=== PATIENT | male | born 1955 | race American Indian/Alaskan Native ===

== ENCOUNTER 2018-10-23 13:14 | Emergency (ER) | payer SELFPAY ==
--- NOTE | 2018-10-23 13:36 | Emergency Department Report ---
Blank Doc - Documentation Documentation: 63 y/o 1 year history of lower back pain that radiates to right flank and hip. worsen with palpation and certain positions. Denies urinary symptoms. Plan urine and xray
[2018-10-23 13:37] VITALS: BP 142/89
--- NOTE | 2018-10-23 14:48 | XRay Report ---
LUMBOSACRAL SPINE, 3 VIEWS: History: Back pain Findings: The vertebral bodies, disk spaces and posterior elements are intact. No compression deformity or malalignment. The SI joints are symmetric and unremarkable. Mild degenerative disc narrowing is noted at L4-5. The remaining levels are within normal limits. Impression: Early degenerative disc disease at L4-5. No evidence for acute injury to the lumbar spine.
[2018-10-23] MEDS ORDERED: TORADOL IM ONE (14:53)
[2018-10-23] MEDS ORDERED: DELTASONE PO ONE (14:53)
--- NOTE | 2018-10-23 14:55 | Emergency Department Report ---
HPI - General Chief Complaint: Back Pain/Injury Time Seen by Provider: 10/23/18 13:33 - HPI HPI: This is a 63-year-old male presents to the ED with low back pain that has been bothering him for about a year. Patient states that he does have a medicine not working thinking aspirin today. He denies any trauma or fall injury to the back. Patient states pain is throbbing in nature. He denies chest pain, abdominal pain, dysuria ED Past Medical Hx - Past Medical History Hx Hypertension: Yes - Social History Smoking Status: Never Smoker Substance Use Type: None - Medications Home Medications: Home Medications Medication Instructions Recorded Confirmed Last Taken Type Cyclobenzaprine [Flexeril] 10 mg PO QHS PRN #20 tablet 10/23/18 Unknown Rx Ibuprofen [Motrin 800 MG tab] 800 mg PO Q8HR PRN #30 tablet 10/23/18 Unknown Rx ED Review of Systems ROS: Stated complaint: BACK/SIDE PAIN Other details as noted in HPI Comment: All other systems reviewed and negative Physical Exam - Physical Exam Vital Signs: Vital Signs 10/23/18 13:34 Temperature 98.2 F Pulse Rate 66 Respiratory 18 Rate Blood Pressure 142/89 O2 Sat by Pulse 100 Oximetry Physical Exam: GENERAL: Alert and oriented x3, no apparent distress, Normal Gait, atraumatic. HEAD: Head is normocephalic and a-traumatic. NECK: Supple. Non edematous, No lymphadenopathy or thyromegaly. No C-spine tenderness, full range of motion BACK: Full range of motion, no spinal tenderness, Tenderness to palpation of the trapezius muscles and latissimus dorsi muscles of the back NEUROLOGIC: The patient is cooperative with no focal neurologic deficits. SKIN: Warm and dry, No lesions, No ulceration or induration present. ED Course Vital Signs 10/23/18 13:34 Temperature 98.2 F Pulse Rate 66 Respiratory 18 Rate Blood Pressure 142/89 O2 Sat by Pulse 100 Oximetry ED Medical Decision Making - Radiology Data Radiology results: report reviewed, image reviewed No acute findings, no dislocation or fractures. - Medical Decision Making 63-year-old male presents with lumbar strain. X-ray shows no acute findings Discussed findings with patient Discussed the patient elevated brace when lifting heavy stuff. Discussed follow-up with primary care physician. Critical care attestation.: If time is entered above; I have spent that time in minutes in the direct care of this critically ill patient, excluding procedure time. ED Disposition Clinical Impression: Lumbar strain Disposition: DC-01 TO HOME OR SELFCARE Is pt being admited?: No Does the pt Need Aspirin: No Condition: Stable Instructions: Muscle Strain (ED), Heat Pack Application (ED) Additional Instructions: Make sure to follow up with the primary care physician as discussed. Take all your medications as you've been prescribed. If you have any worsening symptoms or develop new symptoms please return to ED immediately. Referrals: OMAR AARON MD [Primary Care Provider] - 3-5 Days Forms: Work/School Release Form(ED) Time of Disposition: 14:54
== END 2018-10-23 15:23 | disposition home or self-care (01) ==
LOC: ED 13:14
DX: S39.012A Strain of muscle, fascia and tendon of lower back, initial encounter (principal); I10 Essential (primary) hypertension; X58.XXXA Exposure to other specified factors, initial encounter; Y93.89 Activity, other specified; Y92.89 Other specified places as the place of occurrence of the external cause; Y99.8 Other external cause status
CPT/HCPCS: 72100; 96372; 99283; J1885; J7512

== ENCOUNTER 2019-03-10 02:42 | Emergency (ER) | payer OTHER ==
--- NOTE | 2019-03-10 03:35 | Cat Scan Report ---
CT HEAD WITHOUT CONTRAST INDICATION: MAIN: Pain running up the back of the neck and into the head. Started after playing with grandkids. Denies injury.. TECHNIQUE: All CT scans at this location are performed using CT dose reduction for ALARA by means of automated e xposure control. COMPARISON: None available. FINDINGS: HEMORRHAGE: None. EXTRA-AXIAL SPACES: Normal in size and morphology for the patient's age. VENTRICULAR SYSTEM: Normal in size and morphology for the patient's age. BRAIN PARENCHYMA: No acute findings. MIDLINE SHIFT OR HERNIATION: None. ORBITS: Normal as visualized. SOFT TISSUES OF HEAD: Normal. CALVARIUM: Normal. VISUALIZED PARANASAL SINUSES AND MASTOID AIR CELLS: Clear. ADDITIONAL FINDINGS: None. IMPRESSION: 1. No acute intracranial abnormality. Signer Name: Vik Salinas MD Signed: 03/10/2019 3:31 AM Workstation Name: [id number]
[2019-03-10 04:16] LABS: Basophils % (Auto) 0.6 % (0.0-1.8); Eosinophils # (Auto) 0.1 K/mm3 (0.0-0.4); Eosinophils % (Auto) 2.3 % (0.0-4.3); Hematocrit 42.4 % (35.5-45.6); Hemoglobin 14.2 gm/dl (11.8-15.2); Lymphocytes # (Auto) 1.2 K/mm3 (1.2-5.4); Lymphocytes % (Auto) 29.2 % (13.4-35.0); Mean Corpuscular HGB Conc 34 % (32-34); Mean Corpuscular Volume 93 fl (84-94); Monocytes # (Auto) 0.6 K/mm3 (0.0-0.8); Monocytes % (Auto) 15.4 % (0.0-7.3); Platelet Count 213 K/mm3 (140-440); Red Blood Count 4.56 M/mm3 (3.65-5.03); Red Cell Distribution Width 14.6 % (13.2-15.2)
[2019-03-10 04:40] LABS: Alanine Aminotransferase 36 units/L (7-56); Albumin 4.5 g/dL (3.9-5); BUN/Creatinine Ratio 15; Blood Urea Nitrogen 9 mg/dL (9-20); Calcium 9.4 mg/dL (8.4-10.2); Hemolysis Index 9
[2019-03-10] MEDS ORDERED: TORADOL IM ONE (06:38)
[2019-03-10] MEDS ORDERED: NORVASC PO ONE (06:38)
[2019-03-10] MEDS ORDERED: ZOFRAN ODT PO ONE (06:57)
--- NOTE | 2019-03-10 06:57 | Emergency Department Report ---
ED General Adult HPI - General Chief complaint: Neck Pain/Injury Stated complaint: HEAD/NECK PAIN Time Seen by Provider: 03/10/19 06:29 Source: patient Mode of arrival: Ambulatory Limitations: No Limitations - History of Present Illness Initial comments: This is a 63-year-old man who is noncompliant with his blood pressure medication. He has been here before for back pain. However, he states that he has never had this neck and posterior head pain before. He states that he does a lot of lifting at work. He reports the gradual onset of posterior neck pain which radiates over also involves his occiput. Apparently he has some nausea at home but did not vomit. He states that when he coughs he has exacerbation of the pain. He does not really relate it to movement of his neck. His neck is not stiff per se. He is already had a CT of his head which was read by the radiologist as normal. He does not actually describe a feli headache. He den ies any neurological type change. He's had no fever or chills. -: Gradual Location: head, neck Radiation: other (as per HPI) Quality: aching Consistency: intermittent Improves with: none Worsens with: other (coughing) Associated Symptoms: nausea/vomiting (nausea no vomiting) - Related Data Previous Rx's Medication Instructions Recorded Last Taken Type Cyclobenzaprine [Flexeril] 10 mg PO QHS PRN #20 tablet 10/23/18 Unknown Rx Ibuprofen [Motrin 800 MG tab] 800 mg PO Q8HR PRN #30 tablet 10/23/18 Unknown Rx Butalb/Acetaminophen/Caffeine 1 cap PO Q6HR PRN #7 cap 03/10/19 Unknown Rx [Fioricet 50-300-40 mg CAP] amLODIPine [Norvasc] 5 mg PO DAILY #30 tab 03/10/19 Unknown Rx Allergies Allergy/AdvReac Type Severity Reaction Status Date / Time No Known Allergies Allergy Unverified 10/23/18 13:34 ED Review of Systems ROS: Stated complaint: HEAD/NECK PAIN Other details as noted in HPI Constitutional: denies: chills, fever Eyes: denies: eye pain, eye discharge, vision change ENT: denies: ear pain, throat pain Respiratory: denies: cough, shortness of breath, wheezing Cardiovascular: denies: chest pain, palpitations Endocrine: no symptoms reported Gastrointestinal: denies: abdominal pain, nausea, diarrhea Genitourinary: denies: urgency, dysuria Musculoskeletal: as per HPI. denies: back pain, joint swelling, arthralgia Skin: denies: rash, lesions Neurological: denies: weakness, paresthesias Psychiatric: denies: anxiety, depression Hematological/Lymphatic: denies: easy bleeding, easy bruising ED Past Medical Hx - Past Medical History Previous Medical History?: Yes Hx Hypertension: Yes - Surgical History Past Surgical History?: No - Social History Smoking Status: Current Every Day Smoker Substance Use Type: Alcohol, Marijuana - Medications Home Medications: Home Medications Medication Instructions Recorded Confirmed Last Taken Type Cyclobenzaprine [Flexeril] 10 mg PO QHS PRN #20 tablet 10/23/18 Unknown Rx Ibuprofen [Motrin 800 MG tab] 800 mg PO Q8HR PRN #30 tablet 10/23/18 Unknown Rx Butalb/Acetaminophen/Caffeine 1 cap PO Q6HR PRN #7 cap 03/10/19 Unknown Rx [Fioricet 50-300-40 mg CAP] amLODIPine [Norvasc] 5 mg PO DAILY #30 tab 03/10/19 Unknown Rx ED Physical Exam - General Limitations: No Limitations General appearance: alert, in no apparent distress - Head Head exam: Present: atraumatic, normocephalic - Eye Eye exam: Present: normal appearance. Absent: scleral icterus - ENT ENT exam: Present: mucous membranes moist - Neck Neck exam: Present: normal inspection. Absent: tenderness, meningismus - Respiratory Respiratory exam: Present: normal lung sounds bilaterally. Absent: respiratory distress - Cardiovascular Cardiovascular Exam: Present: regular rate, normal rhythm. Absent: systolic murmur, diastolic murmur, rubs, gallop - GI/Abdominal GI/Abdominal exam: Present: soft, normal bowel sounds. Absent: distended, tenderness, guarding, rebound, rigid - Rectal Rectal exam: Present: deferred - Extremities Exam Extremities exam: Present: normal inspection - Back Exam Back exam: Present: normal inspection - Neurological Exam Neurological exam: Present: alert, oriented X3, CN II-XII intact, normal gait. Absent: motor sensory deficit - Psychiatric Psychiatric exam: Present: normal affect, normal mood - Skin Skin exam: Present: warm, dry, intact, normal color. Absent: rash ED Course Vital Signs 03/10/19 03/10/1919 02:46 05:24 06:59 Temperature 98.6 F 98.5 F Pulse Rate 105 H 77 83 Respiratory 20 16 16 Rate Blood Pressure 158/105 158/115 Blood Pressure 166/103 [Left] O2 Sat by Pulse 97 99 Oximetry - Reevaluation(s) Reevaluation #1: Patient has had an intermittent cough for 2 days and these symptoms related to his cough for at least this period of time. He was given Toradol and amlodipine. Blood pressure is improved. His headache and neck pain is essentially resolved. He is requesting discharge. Although one could consider and I have the possibility of a small subarachnoid hemorrhage in this setting, the fact that the CT is negative after this much time leaves a residual possibility of SAH so small that I do not recommend a spinal tap at this juncture. I have however offered the patient a CT angiogram. States that he is ready to leave and does not want this to be done at this point. He states he will return for any recurrent symptoms. The patient never actually complained of headache per se. He is now asymptomatic at the time of his discharge. We have gone over return criteria and he understands. 03/10/19 07:44 ED Medical Decision Making - Lab Data Result diagrams: 03/10/19 03:48 03/10/19 03:48 Laboratory Results - last 24 hr 03/10/19 03/10/19 03:48 03:48 WBC 4.1 L RBC 4.56 Hgb 14.2 Hct 42.4 MCV 93 MCH 31 MCHC 34 RDW 14.6 Plt Count 213 Lymph % (Auto) 29.2 Grady % (Auto) 15.4 H Eos % (Auto) 2.3 Baso % (Auto) 0.6 Lymph # 1.2 Grady # 0.6 Eos # 0.1 Baso # 0.0 Seg Neutrophils % 52.5 Seg Neutrophils # 2.2 Sodium 137 Potassium 4.1 Chloride 99.5 Carbon Dioxide 21 L Anion Gap 21 BUN 9 Creatinine 0.6 L Estimated GFR > 60 BUN/Creatinine Ratio 15 Glucose 92 Calcium 9.4 Total Bilirubin 0.40 AST 94 H ALT 36 Alkaline Phosphatase 117 Total Protein 8.3 H Albumin 4.5 Albumin/Globulin Ratio 1.2 Critical care attestation.: If time is entered above; I have spent that time in minutes in the direct care of this critically ill patient, excluding procedure time. ED Disposition Clinical Impression: Neck pain Hypertension Qualifiers: Hypertension type: unspecified Qualified Code(s): I10 - Essential (primary) hypertension Disposition: TO HOME OR SELFCARE Is pt being admited?: No Does the pt Need Aspirin: No Condition: Stable Instructions: Hypertension (ED) Additional Instructions: Return to the emergency department for further diagnostic evaluation should you have a headache or any significant worsening of your neck pain. Rx as directed. Primary care follow-up. Prescriptions: Butalb/Acetaminophen/Caffeine [Fioricet 50-300-40 mg CAP] 1 cap PO Q6HR PRN #7 cap PRN Reason: Pain, Moderate (4-6) amLODIPine [Norvasc] 5 mg PO DAILY #30 tab Referrals: OMAR AARON MD [Primary Care Provider] - 24 Hours Time of Disposition: 07:42
[2019-03-10] MEDS ORDERED: ZOFRAN ODT ONE (07:00)
[2019-03-10 07:57] VITALS: BP 139/97
== END 2019-03-10 07:57 | disposition home or self-care (01) ==
LOC: ED 02:42
DX: M54.2 Cervicalgia (principal); R51 Headache; I10 Essential (primary) hypertension; F17.200 Nicotine dependence, unspecified, uncomplicated; F12.10 Cannabis abuse, uncomplicated
CPT/HCPCS: 36415; 70450; 80053; 85025; J1885; 96372; Q0162

== ENCOUNTER 2019-11-12 06:41 | Emergency (ER) | payer SELFPAY ==
[2019-11-12 07:31] VITALS: BP 156/101
--- NOTE | 2019-11-12 08:51 | Emergency Department Report ---
Chief Complaint: Skin Rash Stated Complaint: RT SHOULDER AND HIP PAIN W/RASH Time Seen by Provider: 11/12/19 08:25 - HPI History of Present Illness: 64-year-old -Maced[place] male presents to the emergency room complaining of pain to his right shoulder right hip and leg. Patient states that he has had a shingles-like rash for 1 month. Patient states he has not been any antiviral medication he has been self treating with alcohol. Patient reports he did not get his shingles vaccination. - Exam Vital Signs: Vital Signs 11/12/19 07:30 Temperature 98.9 F Pulse Rate 111 H Respiratory 16 Rate Blood Pressure 156/101 [Right] O2 Sat by Pulse 98 Oximetry Physical Exam: Patient is alert and oriented x3 no acute distress Skin patient has several areas on the right shoulder right flank of dried patchy skin that may have represented grouped vesicles at one time. There is no blisters or vesicles at this moment. Nonerythematous no edematous. Upper extremities full range of motion nontender to palpate nonerythematous nonedematous Right hip full range of motion patient is amatory without difficulty MSE screening note: Focused history and physical exam performed. Due to findings the following was ordered: 64-year-old -Maced[place] male presents to the emergency room complaining of pain to his right shoulder right hip and leg. Patient states that he has had a shingles-like rash for 1 month. Patient states he has not been any antiviral medication he has been self treating with alcohol. Patient reports he did not get his shingles vaccination. Discussed with Dr. Saldana my concerns do not treat patient for shingles as it is been over the incubation period of. Patient has been dealing with rash for 1 month. Patient can take ibuprofen or Tylenol as needed for neuropathy pain and to follow-up with her primary care provider. ED Disposition for MSE Clinical Impression: Shoulder pain, Hip pain, History of shingles Disposition: MED SCREENING EXAM-LEFT Is pt being admited?: No Does the pt Need Aspirin: No Condition: Stable Additional Instructions: Take Tylenol or ibuprofen as needed for pain management. Follow-up with your primary care provider. Referrals: PRIMARY CARE, [Primary Care Provider] - 3-5 Days
== END 2019-11-12 09:08 | disposition left against medical advice (07) ==
LOC: ED 06:41
DX: M25.511 Pain in right shoulder (principal); M25.551 Pain in right hip
CPT/HCPCS: 99282

== ENCOUNTER 2020-06-30 20:57 | Emergency (ER) | payer SELFPAY ==
[2020-06-30 21:26] VITALS: BP 139/98
--- NOTE | 2020-07-01 01:03 | XRay Report ---
CHEST 2 VIEWS INDICATION / CLINICAL INFORMATION: Shortness of breath starting today. Weakness for one to 2 weeks. COMPARISON: None available. FINDINGS: SUPPORT DEVICES: None. HEART / MEDIASTINUM: The heart size and pulmonary vasculature are normal. LUNGS / PLEURA: No significant pulmonary or pleural abnormality. No pneumothorax. ADDITIONAL FINDINGS: No significant additional findings. IMPRESSION: No acute findings. Signer Name: Jalen Yanez MD Signed: 07/01/2020 12:59 AM Workstation Name: [id number]
[2020-07-01 01:51] LABS: Hematocrit 35.1 % (35.5-45.6); Mean Corpuscular HGB Conc 34 % (32-34); Mean Corpuscular Volume 96 fl (84-94); Platelet Count 127 K/mm3 (140-440); Red Blood Count 3.65 M/mm3 (3.65-5.03); Red Cell Distribution Width 13.9 % (13.2-15.2)
[2020-07-01 02:04] LABS: Alanine Aminotransferase 111 units/L (7-56); Albumin 4.5 g/dL (3.9-5); Blood Urea Nitrogen 4 mg/dL (9-20); Calcium 9.2 mg/dL (8.4-10.2); Hemolysis Index 3
[2020-07-01 02:05] LABS: BUN/Creatinine Ratio 8
[2020-07-01 02:09] LABS: Basophils % (Auto) 1.4 % (0.0-1.8); Eosinophils % (Auto) 1.8 % (0.0-4.3); Lymphocytes % (Auto) 26.7 % (13.4-35.0)
[2020-07-01 02:10] LABS: Eosinophils # (Auto) 0.1 K/mm3 (0.0-0.4); Lymphocytes # (Auto) 0.9 K/mm3 (1.2-5.4); Monocytes # (Auto) 0.6 K/mm3 (0.0-0.8)
--- NOTE | 2020-07-01 03:24 | Emergency Department Report ---
ED General Adult HPI - General Chief complaint: Weakness Stated complaint: DIFFICULTY BREATHING, VOMITING, AND WEAKNESS Time Seen by Provider: 07/01/20 00:07 Source: patient Mode of arrival: Ambulatory Limitations: No Limitations - History of Present Illness Initial comments: 64-year-old -[place] male alcoholic who continues at minimum 6 beers w ith mention of oxygen between on a daily basis starting at 6 AM but no other reported past medical history presents emergency department complaining of 1 to 2-week history of episodes of lower extremity numbness tingling occasional weakness, cough with some bouts of shortness of breath. No lower extremity swelling no orthopnea no hemoptysis no hematemesis no hematochezia, no fever, chills, sweats no chest pain or palpitations. He has been feeling more fatigue as well. -: Gradual Improves with: none Worsens with: none Associated Symptoms: weakness. denies: chest pain, diaphoresis, loss of ap petite, malaise, nausea/vomiting, rash, seizure, syncope - Related Data Previous Rx's Medication Instructions Recorded Last Taken Type Cyclobenzaprine [Flexeril] 10 mg PO QHS PRN #20 tablet 10/23/18 Unknown Rx Ibuprofen [Motrin 800 MG tab] 800 mg PO Q8HR PRN #30 tablet 10/23/18 Unknown Rx Butalb/Acetaminophen/Caffeine 1 cap PO Q6HR PRN #7 cap 03/10/19 Unknown Rx [Fioricet 50-300-40 mg CAP] amLODIPine 5 mg PO DAILY #30 tab 03/10/19 Unknown Rx Allergies Allergy/AdvReac Type Severity Reaction Status Date / Time No Known Allergies Allergy Unverified 10/23/18 13:34 ED Review of Systems ROS: Stated complaint: DIFFICULTY BREATHING, VOMITING, AND WEAKNESS Other details as noted in HPI Comment: All other systems reviewed and negative ED Past Medical Hx - Past Medical History Hx Hypertension: Yes - Social History Smoking Status: Never Smoker Substance Use Type: None - Medications Home Medications: Home Medications Medication Instructions Recorded Confirmed Last Taken Type Cyclobenzaprine [Flexeril] 10 mg PO QHS PRN #20 tablet 10/23/18 Unknown Rx Ibuprofen [Motrin 800 MG tab] 800 mg PO Q8HR PRN #30 tablet 10/23/18 Unknown Rx Butalb/Acetaminophen/Caffeine 1 cap PO Q6HR PRN #7 cap 03/10/19 Unknown Rx [Fioricet 50-300-40 mg CAP] amLODIPine 5 mg PO DAILY #30 tab 03/10/19 Unknown Rx ED Physical Exam - General Limitations: No Limitations General appearance: alert, in no apparent distress - Head Head exam: Present: atraumatic, normocephalic - Eye Eye exam: Present: normal appearance, scleral icterus Pupils: Present: normal accommodation - ENT ENT exam: Present: normal exam, normal orophraynx, mucous membranes moist, TM's normal bilaterally - Neck Neck exam: Present: normal inspection - Respiratory Respiratory exam: Present: normal lung sounds bilaterally. Absent: respiratory distress, rhonchi - Cardiovascular Cardiovascular Exam: Present: regular rate, normal rhythm. Absent: systolic murmur, diastolic murmur, rubs, gallop - GI/Abdominal GI/Abdominal exam: Present: soft, normal bowel sounds. Absent: tenderness, rebound, rigid, mass, bruit, pulsatile mass, hernia - Rectal Rectal exam: Present: deferred - Extremities Exam Extremities exam: Present: normal inspection, normal capillary refill - Back Exam Back exam: Present: normal inspection. Absent: CVA tenderness (R), CVA tenderness (L), paraspinal tenderness - Neurological Exam Neurological exam: Present: alert, oriented X3, CN II-XII intact, normal gait, motor sensory deficit - Psychiatric Psychiatric exam: Present: normal affect, normal mood. Absent: anxious, flat affect, suicidal ideation - Skin Skin exam: Present: warm, dry, intact, normal color. Absent: rash, cyanosis, diaphoretic, petechiae ED Course Vital Signs 06/30/20 21:17 Temperature 97.8 F Pulse Rate 94 H Respiratory 18 Rate Blood Pressure 139/98 O2 Sat by Pulse 97 Oximetry - Consultations Consultation #1: 07/01/20 03:39 Case discussed with the attending Dr. Sanchez plan is to discharge home ED Medical Decision Making - Lab Data Result diagrams: 07/01/20 00:37 07/01/20 00:37 Critical care attestation.: If time is entered above; I have spent that time in minutes in the direct care of this critically ill patient, excluding procedure time. ED Disposition Clinical Impression: Elevated liver enzymes, ETOH abuse, Neuropathy Disposition: DC-01 TO HOME OR SELFCARE Is pt being admited?: No Does the pt Need Aspirin: No Condition: Stable Instructions: Abuse of Alcohol (ED), Cirrhosis (ED), Peripheral Neuropathy (ED) Additional Instructions: Please refrain from alcohol utilization. Please return to the emergency department should you start to experience nausea or vomiting, or abdominal pain or a fever or coughing up blood or having bloody stools. Referrals: [facility] [Provider Group] - 3-5 Days
== END 2020-07-01 04:10 | disposition home or self-care (01) ==
LOC: EDBD → ED 20:57
DX: R94.5 Abnormal results of liver function studies (principal); G62.9 Polyneuropathy, unspecified; I10 Essential (primary) hypertension; F12.10 Cannabis abuse, uncomplicated; Z79.899 Other long term (current) drug therapy
CPT/HCPCS: 36415; 71046; 80053; 83690; 85025

== ENCOUNTER 2021-04-15 14:36 | Emergency (ER) | payer SELFPAY ==
[2021-04-15 20:27] LABS: Basophils % (Auto) 0.3 % (0.0-1.8); Eosinophils # (Auto) 0.1 K/mm3 (0.0-0.4); Eosinophils % (Auto) 1.1 % (0.0-4.3); Hematocrit 41.4 % (35.5-45.6); Hemoglobin 13.8 gm/dl (11.8-15.2); Lymphocytes # (Auto) 2.2 K/mm3 (1.2-5.4); Lymphocytes % (Auto) 28.6 % (13.4-35.0); Mean Corpuscular HGB Conc 33 % (32-34); Mean Corpuscular Volume 84 fl (84-94); Monocytes # (Auto) 0.9 K/mm3 (0.0-0.8); Monocytes % (Auto) 12.3 % (0.0-7.3); Platelet Count 262 K/mm3 (140-440); Red Blood Count 4.92 M/mm3 (3.65-5.03)
--- NOTE | 2021-04-15 20:27 | XRay Report ---
LEFT FOOT 3 VIEW(S) INDICATION / CLINICAL INFORMATION: left lateral foot pain/swelling/redness COMPARISON: None available. FINDINGS: BONES / JOINT(S): No acute fracture or subluxation. No significant arthritis. SOFT TISSUES: No significant abnormality. ADDITIONAL FINDINGS: None. Signer Name: Daryn Brock MD Signed: 04/15/2021 8:23 PM Workstation Name: [id number]
[2021-04-15 20:42] LABS: Red Cell Distribution Width 20.9 % (13.2-15.2)
--- NOTE | 2021-04-15 20:58 | Emergency Department Report ---
ED Extremity Problem HPI - General Chief complaint: Extremity Injury, Lower Stated complaint: LT FOOT PAINS Time Seen by Provider: 04/15/21 19:59 Source: patient Mode of arrival: Wheelchair Limitations: No Limitations - History of Present Illness Initial comments: Patient is a 55-year-old male who presents emergency room complaints of left lateral foot pain and swelling that began 2 days ago. He denies any fall or injury. States he does stand on his feet for approximately 8 hours a day. He states he had previously been scratching in this region. He states he wears tennis shoes to work. He denies any numbness or weakness. He denies any pain or swelling in the rest of the leg. He denies any calf pain. He denies ever having this in the past. No past medical history. No allergies to medications. He denies any daily medications. - Related Data Previous Rx's Medication Instructions Recorded Last Taken Type Cyclobenzaprine [Flexeril] 10 mg PO QHS PRN #20 tablet 10/23/18 Unknown Rx Ibuprofen [Motrin 800 MG tab] 800 mg PO Q8HR PRN #30 tablet 10/23/18 Unknown Rx Butalb/Acetaminophen/Caffeine 1 cap PO Q6HR PRN #7 cap 03/10/19 Unknown Rx [Fioricet 50-300-40 mg CAP] amLODIPine 5 mg PO DAILY #30 tab 03/10/19 Unknown Rx Acetaminophen/Codeine [Tylenol 1 tab PO Q6H PRN #12 tab 04/15/21 Unknown Rx /Codeine # 3 tab] Naproxen [EC-Naprosyn] 500 mg PO BID PRN #20 tablet. 04/15/21 Unknown Rx Sulfamethoxazole/Trimethoprim 1 each PO BID 7 Days #14 tablet 04/15/21 Unknown Rx [Bactrim DS TAB] Allergies Allergy/AdvReac Type Severity Reaction Status Date / Time No Known Allergies Allergy Verified 04/15/21 15:33 ED Review of Systems ROS: Stated complaint: LT FOOT PAINS Other details as noted in HPI Comment: All other systems reviewed and negative ED Past Medical Hx - Past Medical History Hx Hypertension: Yes - Social History Smoking Status: Never Smoker Substance Use Type: None - Medications Home Medications: Home Medications Medication Instructions Recorded Confirmed Last Taken Type Cyclobenzaprine [Flexeril] 10 mg PO QHS PRN #20 tablet 10/23/18 Unknown Rx Ibuprofen [Motrin 800 MG tab] 800 mg PO Q8HR PRN #30 tablet 10/23/18 Unknown Rx Butalb/Acetaminophen/Caffeine 1 cap PO Q6HR PRN #7 cap 03/10/19 Unknown Rx [Fioricet 50-300-40 mg CAP] amLODIPine 5 mg PO DAILY #30 tab 03/10/19 Unknown Rx Acetaminophen/Codeine [Tylenol 1 tab PO Q6H PRN #12 tab 04/15/21 Unknown Rx /Codeine # 3 tab] Naproxen [EC-Naprosyn] 500 mg PO BID PRN #20 tablet. 04/15/21 Unknown Rx Sulfamethoxazole/Trimethoprim 1 each PO BID 7 Days #14 tablet 04/15/21 Unknown Rx [Bactrim DS TAB] ED Physical Exam - General Limitations: No Limitations General appearance: alert, in no apparent distress - Head Head exam: Present: atraumatic, normocephalic - Eye Eye exam: Present: normal appearance - ENT ENT exam: Present: mucous membranes moist - Respiratory Respiratory exam: Absent: respiratory distress, accessory muscle use - Neurological Exam Neurological exam: Present: alert, oriented X3 - Psychiatric Psychiatric exam: Present: normal affect, normal mood - Skin Skin exam: Present: warm, dry, other (mild edema and ttp to the left lateral foot, there is mild erythema and increased warmth, no abrasion or laceration, no ulceration, no signs of fluctuance or abscess, does not appear to involve the joint, he has FROM of the LLE, no calf ttp, no edema of the rest of the LLE, neurovascularly intact ) ED Course Vital Signs 04/15/21 04/15/21 15:34 21:19 Temperature 98.4 F Pulse Rate 80 Respiratory 18 Rate Blood Pressure 184/98 Blood Pressure 168/101 [Left] O2 Sat by Pulse 99 Oximetry ED Medical Decision Making - Lab Data Result diagrams: 04/15/21 20:06 04/15/21 20:06 Lab Results 04/15/21 04/15/21 04/15/21 Range/Units 20:06 20:06 20:06 WBC 7.6 (4.5-11.0) K/mm3 RBC 4.92 (3.65-5.03) M/mm3 Hgb 13.8 (11.8-15.2) gm/dl Hct 41.4 (35.5-45.6) % MCV 84 (84-94) fl MCH 28 (28-32) pg MCHC 33 (32-34) % RDW 20.9 H (13.2-15.2) % Plt Count 262 (140-440) K/mm3 Lymph % (Auto) 28.6 (13.4-35.0) % [place] % (Auto) 12.3 H (0.0-7.3) % Eos % (Auto) 1.1 (0.0-4.3) % Baso % (Auto) 0.3 (0.0-1.8) % Lymph # (Auto) 2.2 (1.2-5.4) K/mm3 [place] # (Auto) 0.9 H (0.0-0.8) K/mm3 Eos # (Auto) 0.1 (0.0-0.4) K/mm3 Baso # (Auto) 0.0 (0.0-0.1) K/mm3 Seg Neutrophils % 57.7 (40.0-70.0) % Seg Neutrophils # 4.4 (1.8-7.7) K/mm3 Sodium 139 (137-145) mmol/L Potassium 4.7 (3.6-5.0) mmol/L Chloride 98.6 (98-107) mmol/L Carbon Dioxide 26 (22-30) mmol/L Anion Gap 19 mmol/L BUN 9 (9-20) mg/dL Creatinine 0.8 (0.8-1.3) mg/dL Estimated GFR > 60 ml/min BUN/Creatinine Ratio 11 % Glucose 83 (75-100) mg/dL Lactic Acid 0.90 (0.7-2.0) mmol/L Uric Acid 4.7 (3.5-7.6) mg/dL Calcium 10.2 (8.4-10.2) mg/dL Total Bilirubin 0.50 (0.1-1.2) mg/dL AST 30 (5-40) units/L ALT 16 (7-56) units/L Alkaline Phosphatase 81 (35-129) units/L C-Reactive Protein 0.20 (0.00-1.30) mg/dL Total Protein 7.8 (6.3-8.2) g/dL Albumin 4.8 (3.9-5) g/dL Albumin/Globulin Ratio 1.6 % Vital Signs 04/15/21 04/15/21 15:34 21:19 Temperature 98.4 F Pulse Rate 80 Respiratory 18 Rate Blood Pressure 184/98 Blood Pressure 168/101 [Left] O2 Sat by Pulse 99 Oximetry - Radiology Data Radiology results: report reviewed Ordering Physician: CAYDEN TREJO Date of Service: 04/15/21 Procedure(s): XR foot 3+V LT Accession Number(s): [id number] cc: CAYDEN TREJO Fluoro Time In Minutes: LEFT FOOT 3 VIEW(S) INDICATION / CLINICAL INFORMATION: left lateral foot pain/swelling/redness COMPARISON: None available. FINDINGS: BONES / JOINT(S): No acute fracture or subluxation. No significant arthritis. SOFT TISSUES: No significant abnormality. ADDITIONAL FINDINGS: None. Signer Name: Daryn Brock MD Signed: 04/15/2021 8:23 PM Workstation Name: [id number] Transcribed By: TL Dictated By: Daryn Brock MD Electronically Authenticated By: Daryn Brock MD Signed Date/Time: 04/15/212022 DD/ 22 TD/TT: - Medical Decision Making Patient is a 55-year-old male who presents emergency room complaints of left lateral foot pain and swelling that began 2 days ago. He denies any fall or injury. States he does stand on his feet for approximately 8 hours a day. He states he had previously been scratching in this region. He states he wears tennis shoes to work. He denies any numbness or weakness. He denies any pain or swelling in the rest of the leg. He denies any calf pain. He denies ever having this in the past. No past medical history. No allergies to medications. He denies any daily medications. Vitals with elevated blood pressure, patient states that he has been told he has hypertension in the past, he advised he was attempting to control it with low-sodium diet, he has never been on blood pressure medication, he is not having any symptoms related to his elevated blood pressure, advised patient to follow-up with primary care doctor, keep a blood pressure log, eat a low-sodium diet, increase water intake, incorporate 30 to 60 minutes of daily exercise, the up-to-date medical literature does not recommend emergently lowering asymptomatic elevated blood pressure. On exam:mild edema and ttp to the left lateral foot, there is mild erythema and increased warmth, no abrasion or laceration, no ulceration, no signs of fluctuance or abscess, does not appear to involve the joint, he has FROM of the LLE, no calf ttp, no edema of the rest of the LLE, neurovascularly intact. XR left foot: BONES / JOINT(S): No acute fracture or subluxation. No significant arthritis. SOFT TISSUES: No significant abnormality. ADDITIONAL FINDINGS: None. Labs are normal. No leukocytosis, no lactic acidosis. Uric acid is normal. Patient's blood glucose is normal. Symptoms appear could likely be related to cellulitis, does not appear to involve a joint, do not suspect septic joint at this time. Patient given prescription for medication. See importance of primary care and orthopedic follow-up. Advised to have area reexamined in the next 2 to 3 days. Discussed very strict return precautions with patient. Advised patient Please take medication as prescribed. Follow-up with a orthopedic doctor. Follow-up with a primary care doctor. Return to emergency room for any new or worsening symptoms. Critical care attestation.: If time is entered above; I have spent that time in minutes in the direct care of this critically ill patient, excluding procedure time. ED Disposition Clinical Impression: Foot swelling Foot pain Qualifiers: Laterality: left Qualified Code(s): M79.672 - Pain in left foot Cellulitis Qualifiers: Site of cellulitis: extremity Site of cellulitis of extremity: lower extremity Laterality: left Qualified Code(s): L03.116 - Cellulitis of left lower limb Disposition: 01 HOME / SELF CARE / HOMELESS Is pt being admited?: No Does the pt Need Aspirin: No Condition: Stable Instructions: Cellulitis, Adult Additional Instructions: Please take medication as prescribed. Follow-up with a orthopedic doctor. Follow-up with a primary care doctor. Return to emergency room for any new or worsening symptoms. Prescriptions: Sulfamethoxazole/Trimethoprim [Bactrim DS TAB] 1 each PO BID 7 Days #14 tablet Naproxen [EC-Naprosyn] 500 mg PO BID PRN #20 tablet.dr COCHRAN Reason: moderate pain Acetaminophen/Codeine [Tylenol /Codeine # 3 tab] 1 tab PO Q6H PRN #12 tab PRN Reason: severe pain Referrals: MIKE IRAHETA MD [Staff Physician] - 3-5 Days [facility] [Provider Group] - 3-5 Days OMA KIM MD [Staff Physician] - 3-5 Days [facility] [Provider Group] - 3-5 Days Forms: Work/School Release Form(ED) Time of Disposition: 21:09 Print Language: CZECH
[2021-04-15 21:02] LABS: Alanine Aminotransferase 16 units/L (7-56); Albumin 4.8 g/dL (3.9-5); BUN/Creatinine Ratio 11; Blood Urea Nitrogen 9 mg/dL (9-20); Calcium 10.2 mg/dL (8.4-10.2); Hemolysis Index 39; Uric Acid 4.7 mg/dL (3.5-7.6)
[2021-04-15 21:20] VITALS: BP 168/101
== END 2021-04-16 01:42 | disposition home or self-care (01) ==
LOC: ED 14:36
DX: L03.116 Cellulitis of left lower limb (principal); M79.89 Other specified soft tissue disorders; M79.672 Pain in left foot; I10 Essential (primary) hypertension; Z79.899 Other long term (current) drug therapy
CPT/HCPCS: 36415; 80053; 82140; 84550; 85025; 86140

== ENCOUNTER 2021-07-05 08:25 | Emergency (ER) | payer SELFPAY ==
[2021-07-05 10:31] VITALS: BP 140/93
--- NOTE | 2021-07-05 10:36 | Emergency Department Report ---
ED Back Pain/Injury HPI - General Chief Complaint: Back Pain/Injury Stated Complaint: LOWER BACK PAIN Time Seen by Provider: 07/05/21 10:14 Source: patient Limitations: No Limitations - History of Present Illness Initial Comments: Patient is a 55-year-old male presents emergency room complaints of lower back pain that radiates down his right leg that exacerbated over the last few days. Patient reports that he does a lot of bending over and lifting at his job. 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 He denies any fall or injury. He states occasionally he gets a tingling in his right leg. He denies any leg swelling, calf pain, fever, nausea, vomiting, diarrhea, urinary symptoms, weakness, bowel or bladder incontinence. He denies any steroid use, history of cancer, IV drug use. PMHx HTN. No allergies to meds. - Related Data Previous Rx's Medication Instructions Recorded Last Taken Type Cyclobenzaprine [Flexeril] 10 mg PO QHS PRN #20 tablet 10/23/18 Unknown Rx Ibuprofen [Motrin 800 MG tab] 800 mg PO Q8HR PRN #30 tablet 10/23/18 Unknown Rx Butalb/Acetaminophen/Caffeine 1 cap PO Q6HR PRN #7 cap 03/10/19 Unknown Rx [Fioricet 50-300-40 mg CAP] amLODIPine 5 mg PO DAILY #30 tab 03/10/19 Unknown Rx Acetaminophen/Codeine [Tylenol 1 tab PO Q6H PRN #12 tab 04/15/21 Unknown Rx /Codeine # 3 tab] Naproxen [EC-Naprosyn] 500 mg PO BID PRN #20 tablet. 04/15/21 Unknown Rx Sulfamethoxazole/Trimethoprim 1 each PO BID 7 Days #14 tablet 04/15/21 Unknown Rx [Bactrim DS TAB] Menthol/Camphor [[place] 1 applicatio TP BID #18 oint...g. 07/05/21 Unknown Rx Ointment] Naproxen 375 mg PO BID PRN #20 tablet 07/05/21 Unknown Rx methOCARBAMOL [Robaxin TAB] 500 mg PO BID PRN #14 tab 07/05/21 Unknown Rx Allergies Allergy/AdvReac Type Severity Reaction Status Date / Time No Known Allergies Allergy Verified 04/15/21 15:33 ED Review of Systems ROS: Stated complaint: LOWER BACK PAIN Other details as noted in HPI Comment: All other systems reviewed and negative ED Past Medical Hx - Past Medical History Hx Hypertension: Yes - Social History Smoking Status: Current Every Day Smoker - Medications Home Medications: Home Medications Medication Instructions Recorded Confirmed Last Taken Type Cyclobenzaprine [Flexeril] 10 mg PO QHS PRN #20 tablet 10/23/18 Unknown Rx Ibuprofen [Motrin 800 MG tab] 800 mg PO Q8HR PRN #30 tablet 10/23/18 Unknown Rx Butalb/Acetaminophen/Caffeine 1 cap PO Q6HR PRN #7 cap 03/10/19 Unknown Rx [Fioricet 50-300-40 mg CAP] amLODIPine 5 mg PO DAILY #30 tab 03/10/19 Unknown Rx Acetaminophen/Codeine [Tylenol 1 tab PO Q6H PRN #12 tab 04/15/21 Unknown Rx /Codeine # 3 tab] Naproxen [EC-Naprosyn] 500 mg PO BID PRN #20 tablet. 04/15/21 Unknown Rx Sulfamethoxazole/Trimethoprim 1 each PO BID 7 Days #14 tablet 04/15/21 Unknown Rx [Bactrim DS TAB] Menthol/Camphor [[place] 1 applicatio TP BID #18 oint...g. 07/05/21 Unknown Rx Ointment] Naproxen 375 mg PO BID PRN #20 tablet 07/05/21 Unknown Rx methOCARBAMOL [Robaxin TAB] 500 mg PO BID PRN #14 tab 07/05/21 Unknown Rx ED Physical Exam - General Limitations: No Limitations General appearance: alert, in no apparent distress - Head Head exam: Present: atraumatic, normocephalic - Eye Eye exam: Present: normal appearance - ENT ENT exam: Present: mucous membranes moist - Neck Neck exam: Present: normal inspection, full ROM. Absent: tenderness, meningismus - Respiratory Respiratory exam: Present: normal lung sounds bilaterally. Absent: respiratory distress, wheezes, rales, rhonchi, stridor, chest wall tenderness, accessory muscle use, decreased breath sounds, prolonged expiratory - Cardiovascular Cardiovascular Exam: Present: regular rate, normal rhythm, normal heart sounds. Absent: systolic murmur, diastolic murmur, rubs, gallop - Extremities Exam Extremities exam: Present: other (FROM of the RLE, no calf ttp, no pedal edema, no skin changes, no bony ttp, neurovascularly intact) - Back Exam Back exam: Present: normal inspection, full ROM, paraspinal tenderness (right si ded lumbar paraspinal ttp, no midline C-spine, T-spine or L-spine ttp, no step offs, no deformities). Absent: vertebral tenderness - Neurological Exam Neurological exam: Present: alert, oriented X3, CN II-XII intact, normal gait. Absent: motor sensory deficit - Psychiatric Psychiatric exam: Present: normal affect, normal mood - Skin Skin exam: Present: warm, dry, intact ED Course Vital Signs 07/05/21 10:20 Temperature 98.1 F Pulse Rate 76 Respiratory 18 Rate Blood Pressure 140/93 O2 Sat by Pulse 99 Oximetry ED Medical Decision Making - Medical Decision Making Patient is a 55-year-old male presents emergency room complaints of lower back pain that radiates down his right leg that exacerbated over the last few days. Patient reports that he does a lot of bending over and lifting at his job. 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 He denies any fall or injury. He states occasionally he gets a tingling in his right leg. He denies any leg s welling, calf pain, fever, nausea, vomiting, diarrhea, urinary symptoms, weakness, bowel or bladder incontinence. He denies any steroid use, history of cancer, IV drug use. PMHx HTN. No allergies to meds. Vitals are stable. On exam:right sided lumbar paraspinal ttp, no midline C-spine, T-spine or L-spine ttp, no step offs, no deformities, no focal neuro deficits, ambulatory without difficulty,FROM of the RLE, no calf ttp, no pedal edema, no skin changes, no bony ttp, neurovascularly intact. Symptoms and examination appear the most likely consistent with sciatica versus lumbar radiculopathy. Patient has no red flag warning signs of back pain, no trauma, no unexplained weight loss, no neuro deficits, no fever, no IV drug use, no steroid use, no history of cancer. Patient given prescription for medications. Advised patient Please use medication as prescribed. May use ice pack, heating pad, rest, and epsom salt bath. Do not use [place] balm while using heat or ice. Follow-up with a primary care doctor for reexamination. Return to emergency room for new or worsening symptoms. Critical care attestation.: If time is entered above; I have spent that time in minutes in the direct care of this critically ill patient, excluding procedure time. ED Disposition Clinical Impression: Low back pain Qualifiers: Chronicity: acute Back pain laterality: right Sciatica presence: with sciatica Sciatica laterality: sciatica of right side Qualified Code(s): M54.41 - Lumbago with sciatica, right side Disposition: HOME / SELF CARE / HOMELESS Is pt being admited?: No Does the pt Need Aspirin: No Condition: Stable Instructions: Sciatica Additional Instructions: Please use medication as prescribed. May use ice pack, heating pad, rest, and epsom salt bath. Do not use [place] balm while using heat or ice. Follow-up with a primary care doctor for reexamination. Return to emergency room for new or worsening symptoms. Prescriptions: Naproxen 375 mg PO BID PRN #20 tablet PRN Reason: pain methOCARBAMOL [Robaxin TAB] 500 mg PO BID PRN #14 tab PRN Reason: muscle spasm/pain Menthol/Camphor [[place] Ointment] 1 applicatio TP BID #18 oint...g. Referrals: MIKE IRAHETA MD [Staff Physician] - 2-3 Days [facility] [Provider Group] - 2-3 Days Time of Disposition: 10:37 Print Language: [place]
== END 2021-07-05 11:00 | disposition home or self-care (01) ==
LOC: ED 08:25
DX: M54.50 Low back pain, unspecified (principal); I10 Essential (primary) hypertension; F17.200 Nicotine dependence, unspecified, uncomplicated
CPT/HCPCS: 99281

== ENCOUNTER 2021-08-24 13:57 | Emergency (ER) | payer SELFPAY ==
--- NOTE | 2021-08-24 14:25 | Emergency Department Report ---
ED Back Pain/Injury HPI - General Chief Complaint: Back Pain/Injury Stated Complaint: back flores Time Seen by Provider: 08/24/21 14:18 Source: patient Limitations: No Limitations - History of Present Illness Initial Comments: Patient is a 56-year-old male presents emergency room with complaints of right- sided back pain that radiates down his right leg that exacerbated over the last month. Patient was seen for similar symptoms in early July but reports that he did not follow-up with anyone. He denies any fall or injury. He denies any fever, nausea, vomiting, diarrhea, urinary symptoms, abdominal pain, chest pain, shortness of breath, numbness, weakness, bowel or bladder incontinence. He denies any steroid use, history of cancer, IV drug use. No past medical histor y. No allergies to medications. - Related Data Previous Rx's Medication Instructions Recorded Last Taken Type Cyclobenzaprine [Flexeril] 10 mg PO QHS PRN #20 tablet 10/23/18 Unknown Rx Ibuprofen [Motrin 800 MG tab] 800 mg PO Q8HR PRN #30 tablet 10/23/18 Unknown Rx Butalb/Acetaminophen/Caffeine 1 cap PO Q6HR PRN #7 cap 03/10/19 Unknown Rx [Fioricet 50-300-40 mg CAP] amLODIPine 5 mg PO DAILY #30 tab 03/10/19 Unknown Rx Acetaminophen/Codeine [Tylenol 1 tab PO Q6H PRN #12 tab 04/15/21 Unknown Rx /Codeine # 3 tab] Naproxen [EC-Naprosyn] 500 mg PO BID PRN #20 tablet. 04/15/21 Unknown Rx Sulfamethoxazole/Trimethoprim 1 each PO BID 7 Days #14 tablet 04/15/21 Unknown Rx [Bactrim DS TAB] Naproxen 375 mg PO BID PRN #20 tablet 07/05/21 Unknown Rx Meloxicam [Mobic] 7.5 mg PO QDAY #30 tablet 08/24/21 Unknown Rx Menthol/Camphor [[place] 1 applicatio TP BID #18 oint...g. 08/24/21 Unknown Rx Ointment] methOCARBAMOL [Robaxin TAB] 500 mg PO BID PRN #20 tab 08/24/21 Unknown Rx Allergies Allergy/AdvReac Type Severity Reaction Status Date / Time No Known Allergies Allergy Verified 04/15/21 15:33 ED Review of Systems ROS: Stated complaint: back flores Other details as noted in HPI Comment: All other systems reviewed and negative ED Past Medical Hx - Past Medical History Hx Hypertension: Yes - Social History Smoking Status: Current Every Day Smoker - Medications Home Medications: Home Medications Medication Instructions Recorded Confirmed Last Taken Type Cyclobenzaprine [Flexeril] 10 mg PO QHS PRN #20 tablet 10/23/18 Unknown Rx Ibuprofen [Motrin 800 MG tab] 800 mg PO Q8HR PRN #30 tablet 10/23/18 Unknown Rx Butalb/Acetaminophen/Caffeine 1 cap PO Q6HR PRN #7 cap 03/10/19 Unknown Rx [Fioricet 50-300-40 mg CAP] amLODIPine 5 mg PO DAILY #30 tab 03/10/19 Unknown Rx Acetaminophen/Codeine [Tylenol 1 tab PO Q6H PRN #12 tab 04/15/21 Unknown Rx /Codeine # 3 tab] Naproxen [EC-Naprosyn] 500 mg PO BID PRN #20 tablet.dr 04/15/21 Unknown Rx Sulfamethoxazole/Trimethoprim 1 each PO BID 7 Days #14 tablet 04/15/21 Unknown Rx [Bactrim DS TAB] Naproxen 375 mg PO BID PRN #20 tablet 07/05/21 Unknown Rx Meloxicam [Mobic] 7.5 mg PO QDAY #30 tablet 08/24/21 Unknown Rx Menthol/Camphor [[place] 1 applicatio TP BID #18 oint...g. 08/24/21 Unknown Rx Ointment] methOCARBAMOL [Robaxin TAB] 500 mg PO BID PRN #20 tab 08/24/21 Unknown Rx ED Physical Exam - General Limitations: No Limitations General appearance: alert, in no apparent distress - Head Head exam: Present: atraumatic, normocephalic - Eye Eye exam: Present: normal appearance - ENT ENT exam: Present: mucous membranes moist - Neck Neck exam: Present: normal inspection, full ROM. Absent: tenderness, meningismus - Respiratory Respiratory exam: Present: normal lung sounds bilaterally. Absent: respiratory distress, wheezes, rales, rhonchi, stridor, chest wall tenderness, accessory muscle use, decreased breath sounds, prolonged expiratory - Cardiovascular Cardiovascular Exam: Present: regular rate, normal rhythm, normal heart sounds. Absent: systolic murmur, diastolic murmur, rubs, gallop - Back Exam Back exam: Present: normal inspection, full ROM, paraspinal tenderness (right sided lumbar paraspinal ttp, no midline c-spine, t-spine, or l-spine ttp, no step offs, no deformities). Absent: vertebral tenderness - Neurological Exam Neurological exam: Present: alert, oriented X3, CN II-XII intact, normal gait. Absent: motor sensory deficit - Psychiatric Psychiatric exam: Present: normal affect, normal mood - Skin Skin exam: Present: warm, dry, intact ED Course Vital Signs 08/24/21 08/24/21 13:59 14:38 Temperature 98.7 F Pulse Rate 98 H 74 Respiratory 16 15 Rate Blood Pressure 153/91 132/82 [Left] O2 Sat by Pulse 97 99 Oximetry ED Medical Decision Making - Lab Data Vital Signs 08/24/21 08/24/21 13:59 14:38 Temperature 98.7 F Pulse Rate 98 H 74 Respiratory 16 15 Rate Blood Pressure 153/91 132/82 [Left] O2 Sat by Pulse 97 99 Oximetry - Medical Decision Making Patient is a 56-year-old male presents emergency room with complaints of right- sided back pain that radiates down his right leg that exacerbated over the last month. Patient was seen for similar symptoms in early July but reports that he did not follow-up with anyone. He denies any fall or injury. He denies any fever, nausea, vomiting, diarrhea, urinary symptoms, abdominal pain, chest pain, shortness of breath, numbness, weakness, bowel or bladder incontinence. He denies any steroid use, history of cancer, IV drug use. No past medical history. No allergies to medications. Vitals are stable. On exam: right sided lumbar paraspinal ttp, no midline c-spine, t-spine, or l-spine ttp, no step offs, no deformities, no focal neuro deficits, ambulatory without difficulty. Symptoms and examination likely consistent with lumbar radiculopathy versus sciatica. Patient has no red flag warning signs of back pain, no trauma, no unexplained weight loss, no neuro deficits, no fever, no IV drug use, no steroid use, no history of cancer, no saddle numbness. Advised pt Please use medication as prescribed as needed. Follow-up with your primary care doctor. F ollow-up with a military personnel specialist. It is very important that you follow-up. Return to emergency room for any new or worsening symptoms. Critical care attestation.: If time is entered above; I have spent that time in minutes in the direct care of this critically ill patient, excluding procedure time. ED Disposition Clinical Impression: Low back pain Qualifiers: Chronicity: acute Back pain laterality: right Sciatica presence: with sciatica Sciatica laterality: sciatica of right side Qualified Code(s): M54.41 - Lumbago with sciatica, right side Disposition: 01 HOME / SELF CARE / HOMELESS Is pt being admited?: No Does the pt Need Aspirin: No Condition: Stable Instructions: Sciatica Additional Instructions: Please use medication as prescribed as needed. Follow-up with your primary care doctor. Follow-up with a military personnel specialist. It is very important that you follow-up. Return to emergency room for any new or worsening symptoms. Prescriptions: Meloxicam [Mobic] 7.5 mg PO QDAY #30 tablet methOCARBAMOL [Robaxin TAB] 500 mg PO BID PRN #20 tab PRN Reason: muscle spasm/pain Menthol/Camphor [[place] Ointment] 1 applicatio TP BID #18 oint...g. Referrals: MIKE IRAHETA MD [Staff Physician] - 3-5 Days [facility] [Provider Group] - 3-5 Days [facility], [LAB[facility]CONTRACT] - 3-5 Days [facility] [Outside] - 3-5 Days FANI JONES II, MD [Staff Physician] - 3-5 Days (military personnel specialist ) Time of Disposition: 14:24 Print Language: [place]ISH
[2021-08-24 14:41] VITALS: BP 132/82
== END 2021-08-24 14:58 | disposition home or self-care (01) ==
LOC: ED 13:57
DX: M54.50 Low back pain, unspecified (principal); F17.200 Nicotine dependence, unspecified, uncomplicated
CPT/HCPCS: 99282

== ENCOUNTER 2022-01-01 23:52 | Emergency (ER) | payer SELFPAY ==
[2022-01-02 10:29] VITALS: BP 132/85
[2022-01-02] MEDS ORDERED: TETANUS,DIPH,PERTUSS(ACELL) VACCINE 0.5 ML SYRINGE IM ONE (10:35)
--- NOTE | 2022-01-02 10:40 | Emergency Department Report ---
ED Lower Extremity HPI - General Chief Complaint: Extremity Injury, Lower Stated Complaint: FOOT INURY Source: patient Mode of arrival: Ambulatory Limitations: No Limitations - History of Present Illness Initial Comments: Patient is a 56-year-old -[place] male with a history of hypertension who presents to the ED with complaint of acute onset right plantar foot pain due to a small puncture wound that he sustained after stepping on an old chandu nail 24 hours ago that appears through his rubber shoes. Patient states that he removed the nail completely but subsequently has been having persistent pain on ambulation. Patient states that he is not up-to-date with his tetanus vaccinations. Patient denies fall, traumatic injury, dizziness, syncope, nausea and vomiting, fever and chills, numbness and tingling or weakness of right foot or headache. MD Complaint: foot injury (Right plantar foot puncture wound, stepped on a chandu nail) -: Sudden, hour(s) (24) Injury: Foot: Right (Puncture wound on right plantar foot with pain) Type of Injury: laceration Place: street/outdoors Severity scale (0 -10): 5 Improves With: nothing Worsens With: weight bearing, movement, palpation Context: stepped on nail Associated Symptoms: snap/pop sensation, ambulatory. denies: swelling, numbness, tingling, unable to bear weight, able to partially bear weight - Related Data Previous Rx's Medication Instructions Recorded Last Taken Type Cyclobenzaprine [Flexeril] 10 mg PO QHS PRN #20 tablet 10/23/18 Unknown Rx Ibuprofen [Motrin 800 MG tab] 800 mg PO Q8HR PRN #30 tablet 10/23/18 Unknown Rx Butalb/Acetaminophen/Caffeine 1 cap PO Q6HR PRN #7 cap 03/10/19 Unknown Rx [Fioricet 50-300-40 mg CAP] amLODIPine 5 mg PO DAILY #30 tab 03/10/19 Unknown Rx Acetaminophen/Codeine [Tylenol 1 tab PO Q6H PRN #12 tab 04/15/21 Unknown Rx /Codeine # 3 tab] Naproxen [EC-Naprosyn] 500 mg PO BID PRN #20 tablet. 04/15/21 Unknown Rx Sulfamethoxazole/Trimethoprim 1 each PO BID 7 Days #14 tablet 04/15/21 Unknown Rx [Bactrim DS TAB] Naproxen 375 mg PO BID PRN #20 tablet 07/05/21 Unknown Rx Meloxicam [Mobic] 7.5 mg PO QDAY #30 tablet 08/24/21 Unknown Rx Menthol/Camphor [[place] 1 applicatio TP BID #18 oint...g. 08/24/21 Unknown Rx Ointment] methOCARBAMOL [Robaxin TAB] 500 mg PO BID PRN #20 tab 08/24/21 Unknown Rx Ciprofloxacin HCl 500 mg PO Q12H #20 tab 01/02/22 Unknown Rx Ibuprofen [Motrin] 600 mg PO Q8H PRN #30 tablet 01/02/22 Unknown Rx Allergies Allergy/AdvReac Type Severity Reaction Status Date / Time No Known Allergies Allergy Verified 01/02/22 01:49 ED Review of Systems ROS: Stated complaint: FOOT INURY Other details as noted in HPI Constitutional: denies: chills, fever Eyes: denies: eye pain, eye discharge, vision change ENT: denies: ear pain, throat pain Respiratory: denies: cough, shortness of breath, wheezing Cardiovascular: denies: chest pain, palpitations Endocrine: no symptoms reported Gastrointestinal: denies: abdominal pain, nausea, diarrhea Genitourinary: denies: urgency, dysuria Musculoskeletal: arthralgia (Right plantar foot pain due to small puncture wound). denies: back pain, joint swelling Skin: other (Small puncture wound on right plantar foot). denies: rash, lesions Neurological: denies: headache, weakness, paresthesias Psychiatric: denies: anxiety, depression Hematological/Lymphatic: denies: easy bleeding, easy bruising ED Past Medical Hx - Past Medical History Previous Medical History?: Yes Hx Hypertension: Yes - Surgical History Past Surgical History?: No - Social History Smoking Status: Never Smoker Substance Use Type: None - Medications Home Medications: Home Medications Medication Instructions Recorded Confirmed Last Taken Type Cyclobenzaprine [Flexeril] 10 mg PO QHS PRN #20 tablet 10/23/18 01/02/22 Unknown Rx Ibuprofen [Motrin 800 MG tab] 800 mg PO Q8HR PRN #30 tablet 10/23/18 01/02/22 Unknown Rx Butalb/Acetaminophen/Caffeine 1 cap PO Q6HR PRN #7 cap 03/10/19 01/02/22 Unknown Rx [Fioricet 50-300-40 mg CAP] amLODIPine 5 mg PO DAILY #30 tab 03/10/19 01/02/22 Unknown Rx Acetaminophen/Codeine [Tylenol 1 tab PO Q6H PRN #12 tab 04/15/21 01/02/22 Unknown Rx /Codeine # 3 tab] Naproxen [EC-Naprosyn] 500 mg PO BID PRN #20 tablet. 04/15/21 01/02/22 Unknown Rx Sulfamethoxazole/Trimethoprim 1 each PO BID 7 Days #14 tablet 04/15/21 01/02/22 Unknown Rx [Bactrim DS TAB] Naproxen 375 mg PO BID PRN #20 tablet 07/05/21 01/02/22 Unknown Rx Meloxicam [Mobic] 7.5 mg PO QDAY #30 tablet 08/24/21 01/02/22 Unknown Rx Menthol/Camphor [[place] 1 applicatio TP BID #18 oint...g. 08/24/21 01/02/22 Unknown Rx Ointment] methOCARBAMOL [Robaxin TAB] 500 mg PO BID PRN #20 tab 08/24/21 01/02/22 Unknown Rx Ciprofloxacin HCl 500 mg PO Q12H #20 tab 01/02/22 Unknown Rx Ibuprofen [Motrin] 600 mg PO Q8H PRN #30 tablet 01/02/22 Unknown Rx ED Physical Exam - General Limitations: No Limitations General appearance: alert, in no apparent distress - Head Head exam: Present: atraumatic, normocephalic, normal inspection - Eye Eye exam: Present: normal appearance, PERRL, EOMI Pupils: Present: normal accommodation - ENT ENT exam: Present: normal exam, normal orophraynx, mucous membranes moist, TM's normal bilaterally, normal external ear exam - Neck Neck exam: Present: normal inspection, full ROM. Absent: tenderness - Respiratory Respiratory exam: Present: normal lung sounds bilaterally. Absent: respiratory distress, wheezes, rales, rhonchi, chest wall tenderness, decreased breath sounds, prolonged expiratory - Cardiovascular Cardiovascular Exam: Present: regular rate, normal rhythm, normal heart sounds. Absent: systolic murmur, diastolic murmur, rubs, gallop - GI/Abdominal GI/Abdominal exam: Present: soft, normal bowel sounds. Absent: tenderness, guarding, rebound, hyperactive bowel sounds, organomegaly, mass - Extremities Exam Extremities exam: Present: normal inspection, full ROM, tenderness (Palpable mild right plantar foot tenderness due to small puncture wound), normal capillary refill. Absent: pedal edema, joint swelling, calf tenderness - Back Exam Back exam: Present: normal inspection, full ROM. Absent: tenderness, CVA tenderness (L), muscle spasm, vertebral tenderness - Neurological Exam Neurological exam: Present: alert, oriented X3, CN II-XII intact, normal gait, reflexes normal - Psychiatric Psychiatric exam: Present: normal affect, normal mood - Skin Skin exam: Present: warm, dry, intact, normal color, abrasion (Small puncture wound on right plantar foot with mild tenderness). Absent: rash ED Course Vital Signs 01/02/22 01/02/22 01/02/22 01:44 01:46 10:28 Temperature 97.9 F 97.9 F 99.6 F Pulse Rate 96 H 74 Respiratory 20 18 Rate Blood Pressure 138/93 Blood Pressure 132/85 [Right] O2 Sat by Pulse 98 99 Oximetry ED Lower Extremity MDM - Medical Decision Making This is a 56-year-old -[place] male with a history of hypertension who presents to the ED with complaint of acute onset right plantar foot pain due to a small puncture wound that he sustained after stepping on an old chandu nail 24 hours ago that appears through his rubber shoes. Patient states that he removed the nail completely but subsequently has been having persistent pain on ambulation. Patient states that he is not up-to-date with his tetanus vaccinations. In the ED, patient is alert and oriented x3 and is not in any distress. Patient was treated in the ED with booster tetanus vaccinations. Patient was therefore after discharge home on pain medications and antibiotics and advised to follow-up with his primary care physician in 7 to 10 days for reevaluation or return to the ED immediately if symptoms get worse. - Differential Diagnosis Puncture wound; laceration; abrasion; Critical care attestation.: If time is entered above; I have spent that time in minutes in the direct care of this critically ill patient, excluding procedure time. ED Disposition Clinical Impression: Puncture wound of plantar aspect of right foot Qualifiers: Encounter type: initial encounter Qualified Code(s): S91.331A - Puncture wound without foreign body, right foot, initial encounter Disposition: HOME / SELF CARE / HOMELESS Is pt being admited?: No Does the pt Need Aspirin: No Condition: Stable Instructions: Puncture Wound, [id number], Wound Care, Adult Additional Instructions: Take medication with food, drink plenty of fluids and follow-up with your primary care physician in 7 to 10 days for reevaluation. Return to the ED immediately if symptoms get worse Prescriptions: Ciprofloxacin HCl 500 mg PO Q12H #20 tab Ibuprofen [Motrin] 600 mg PO Q8H PRN #30 tablet PRN Reason: Pain Referrals: [facility] [Provider Group] - 7-10 days Time of Disposition: 10:40 Print Language: MALAY
== END 2022-01-02 11:00 | disposition home or self-care (01) ==
LOC: ED 23:52
DX: S91.331A Puncture wound without foreign body, right foot, initial encounter (principal); I10 Essential (primary) hypertension; Z79.899 Other long term (current) drug therapy; Y93.A3 Activity, aerobic and step exercise; Y93.89 Activity, other specified; Y92.89 Other specified places as the place of occurrence of the external cause; Y99.8 Other external cause status
CPT/HCPCS: 90471; 90715; 99282